=== PATIENT | male | born 1970 | race Caucasian/White ===

== ENCOUNTER 2017-10-13 14:13 | Emergency (ER) | payer SELFPAY ==
[~2017-10-13] VITALS: Ht 180.3 cm; Wt 108.4 kg
[2017-10-13 15:01] VITALS: Ht 180.3 cm; Wt 108.4 kg
[2017-10-13 16:47] VITALS: BP 124/81
== END 2017-10-13 16:47 | disposition home or self-care (01) ==
LOC: ED 14:13
DX: J20.9 Acute bronchitis, unspecified (principal)